=== PATIENT | male | born 1945 | race Caucasian/White ===

== ENCOUNTER 2017-09-22 22:24 | Inpatient (IN) | payer MEDICARE ==
[2017-09-22] MEDS ORDERED: SODIUM CHLORIDE 0.9% 500 ML IV STA (23:19)
[2017-09-22] MEDS ORDERED: MORPHINE SULFATE 4 MG/ML SYRINGE IV STA (23:19)
--- NOTE | 2017-09-22 23:25 | ED ---
General Adult HPI - General Chief complaint: Abdominal Pain Stated complaint: Groin Pain Time Seen by Provider: 09/22/17 23:02 Source: patient Mode of arrival: ambulatory Limitations: no limitations - History of Present Illness Initial comments: 72-year-old male presents the ED today with complaint of bulge in his left groin and pain. Patient reports that for the past 3 months he has noticed a bulge in his left groin that he is able to push back in, he states that this evening the bulge came out and became painful he was unable to push it back in. He has not been evaluated by a physician for this prior to [facility]. Patient reports that he was in his usual state of health throughout the day today. He had a normal bowel movement this morning. He was able to work out and play a round of golf throughout the day without any discomfort. This evening he noticed a bulge in his left groin which she has noticed multiple times before. He attempted to reduce this without success and then developed some significant pain in this area. He also notes that he can hear to going in the bulge. Patient denies any fevers, chills, nausea, vomiting, diarrhea, change in bowel or bladder habits. His last meal was around 2 PM today. He has no known history of inguinal hernia, he does have a history of prostate cancer and prostate surgeries. - Related Data Allergies Allergy/AdvReac Type Severity Reaction Status Date / Time No Known Allergies Allergy Verified 09/22/17 22:40 Review of Systems ROS Statement: Those systems with pertinent positive or pertinent negative responses have been documented in the HPI. ROS Other: All systems not noted in ROS Statement are negative. Past Medical History Past Medical History: No Reported History History of Any Multi-Drug Resistant Organisms: None Reported Past Surgical History: Bowel Resection, Prostate Surgery Past Psychological History: No Psychological Hx Reported Smoking Status: Never smoker Past Alcohol Use History: Rare Past Drug Use History: None Reported General Exam Limitations: no limitations General appearance: alert, other (Appears uncomfortable) Head exam: Present: atraumatic, normocephalic Eye exam: Present: normal appearance, PERRL ENT exam: Present: normal exam Neck exam: Present: normal inspection Respiratory exam: Present: normal lung sounds bilaterally. Absent: respiratory distress Cardiovascular Exam: Present: regular rate, normal rhythm GI/Abdominal exam: Present: soft, hernia Rectal exam: Present: deferred exam: Absent: testicular tenderness, scrotal swelling Extremities exam: Present: normal inspection Back exam: Present: normal inspection Neurological exam: Present: alert, oriented X3 Psychiatric exam: Present: normal affect, normal mood Skin exam: Present: warm, dry, intact Course Vital Signs 09/22/17 09/23/17 09/23/17 22:37 01:33 01:35 Temperature 97.4 F L 98.6 F Pulse Rate 76 77 Respiratory 20 16 Rate Blood Pressure 147/82 157/81 O2 Sat by Pulse 97 97 Oximetry Medical Decision Making - Medical Decision Making Patient seen and evaluated, history and physical exam are consistent with an incarcerated inguinal hernia I was unsuccessful in reducing the hernia Labs, imaging were ordered An ice pack was applied to the groin, morphine was ordered - I will reattempt reduction after analgesia Patient was given morphine and reported some improvement in his discomfort, the patient was then placed in Trendelenburg position and direct pressure was applied to the hernia. I was not successful in reducing the hernia attempts to reduce cause significant pain. Labs resulted, no elevation of the lactic acid, no leukocytosis Computed tomography scan confirms the suspected left inguinal hernia with incarceration there is noted to be descending colon in the hernia Patient was updated with the CT findings and plan for admission Patient care was discussed with Dr. Mascorro general surgery team who agrees with plan for admission, nothing by mouth status, pain management. He will evaluate the patient in the morning with plan for surgery. - Lab Data Result diagrams: 09/22/17 23:55 09/22/17 23:55 Lab Results 09/22/17 09/22/17 09/22/17 Range/Units 23:55 23:55 23:55 WBC 8.6 (3.8-10.6) k/uL RBC 4.51 (4.30-5.90) m/uL Hgb 14.5 (13.0-17.5) gm/dL Hct 42.4 (39.0-53.0) % MCV 94.1 (80.0-100.0) fL MCH 32.3 (25.0-35.0) pg MCHC 34.3 (31.0-37.0) g/dL RDW 13.0 (11.5-15.5) % Plt Count 173 (150-450) k/uL Neutrophils % 68 % Lymphocytes % 20 % Monocytes % 6 % Eosinophils % 4 % Basophils % 0 % Neutrophils # 5.8 (1.3-7.7) k/uL Lymphocytes # 1.7 (1.0-4.8) k/uL Monocytes # 0.5 (0-1.0) k/uL Eosinophils # 0.4 (0-0.7) k/uL Basophils # 0.0 (0-0.2) k/uL PT (9.0-12.0) sec INR (<1.2) APTT (22.0-30.0) sec Sodium 142 (137-145) mmol/L Potassium 4.3 (3.5-5.1) mmol/L Chloride 108 H (98-107) mmol/L Carbon Dioxide 27 (22-30) mmol/L Anion Gap 7 mmol/L BUN 23 H (9-20) mg/dL Creatinine 0.90 (0.66-1.25) mg/dL Est GFR (CKD-EPI)AfAm >90 (>60 ml/min/1.73 sqM) Est GFR (CKD-EPI)NonAf 84 (>60 ml/min/1.73 sqM) Glucose 132 H (74-99) mg/dL Plasma Lactic Acid Ilya 1.3 (0.7-2.0) mmol/L Calcium 9.3 (8.4-10.2) mg/dL Total Bilirubin 0.6 (0.2-1.3) mg/dL AST 26 (17-59) U/L ALT 30 (21-72) U/L Alkaline Phosphatase 73 (38-126) U/L Total Protein 6.4 (6.3-8.2) g/dL Albumin 4.1 (3.5-5.0) g/dL Urine Color Urine Appearance (Clear) Urine pH (5.0-8.0) Ur Specific [place] (1.001-1.035) Urine Protein (Negative) Urine Glucose (UA) (Negative) Urine Ketones (Negative) Urine Blood (Negative) Urine Nitrite (Negative) Urine Bilirubin (Negative) Urine Urobilinogen (<2.0) mg/dL Ur Leukocyte Esterase (Negative) Urine RBC (0-5) /hpf Urine WBC (0-5) /hpf Urine Bacteria (None) /hpf Urine Mucus (None) /hpf Blood Type Blood Type Recheck Antibody Screen Spec Expiration Date 09/22/17 09/22/17 09/23/17 Range/Units 23:55 23:55 00:05 WBC (3.8-10.6) k/uL RBC (4.30-5.90) m/uL Hgb (13.0-17.5) gm/dL Hct (39.0-53.0) % MCV (80.0-100.0) fL MCH (25.0-35.0) pg MCHC (31.0-37.0) g/dL RDW (11.5-15.5) % Plt Count (150-450) k/uL Neutrophils % % Lymphocytes % % Monocytes % % Eosinophils % % Basophils % % Neutrophils # (1.3-7.7) k/uL Lymphocytes # (1.0-4.8) k/uL Monocytes # (0-1.0) k/uL Eosinophils # (0-0.7) k/uL Basophils # (0-0.2) k/uL PT 10.1 (9.0-12.0) sec INR 1.0 (<1.2) APTT 23.1 (22.0-30.0) sec Sodium (137-145) mmol/L Potassium (3.5-5.1) mmol/L Chloride (98-107) mmol/L Carbon Dioxide (22-30) mmol/L Anion Gap mmol/L BUN (9-20) mg/dL Creatinine (0.66-1.25) mg/dL Est GFR (CKD-EPI)AfAm (>60 ml/min/1.73 sqM) Est GFR (CKD-EPI)NonAf (>60 ml/min/1.73 sqM) Glucose (74-99) mg/dL Plasma Lactic Acid Ilya (0.7-2.0) mmol/L Calcium (8.4-10.2) mg/dL Total Bilirubin (0.2-1.3) mg/dL AST (17-59) U/L ALT (21-72) U/L Alkaline Phosphatase (38-126) U/L Total Protein (6.3-8.2) g/dL Albumin (3.5-5.0) g/dL Urine Color Yellow Urine Appearance Clear (Clear) Urine pH 5.5 (5.0-8.0) Ur Specific [place] 1.024 (1.001-1.035) Urine Protein Trace H (Negative) Urine Glucose (UA) Negative (Negative) Urine Ketones Negative (Negative) Urine Blood Trace H (Negative) Urine Nitrite Negative (Negative) Urine Bilirubin Negative (Negative) Urine Urobilinogen 2.0 (<2.0) mg/dL Ur Leukocyte Esterase Negative (Negative) Urine RBC 3 (0-5) /hpf Urine WBC <1 (0-5) /hpf Urine Bacteria Rare H (None) /hpf Urine Mucus Rare H (None) /hpf Blood Type A Positive Blood Type Recheck CABO Indicated Antibody Screen NEGATIVE Spec Expiration Date 09/25/2017 - 1590 Disposition Clinical Impression: Incarcerated left inguinal hernia Disposition: ADMITTED IP TO THIS [facility] Condition: Good Decision Time: 01:09
[2017-09-23 00:06] LABS: Basophils % (A) 0 %; Eosinophils # (A) 0.4 k/uL (0-0.7); Eosinophils % (A) 4 %; HCT 42.4 % (39.0-53.0); HGB 14.5 gm/dL (13.0-17.5); Lymphocytes # (A) 1.7 k/uL (1.0-4.8); Lymphocytes % (A) 20 %; MCH 32.3 pg (25.0-35.0); MCHC 34.3 g/dL (31.0-37.0); MCV 94.1 fL (80.0-100.0); Mean Platelet Volume 7.8; Monocytes # (A) 0.5 k/uL (0-1.0); Monocytes % (A) 6 %; Neutrophils # (A) 5.8 k/uL (1.3-7.7); Neutrophils % (A) 68 %; Platelet Count 173 k/uL (150-450); RBC 4.51 m/uL (4.30-5.90); WBC 8.6 k/uL (3.8-10.6)
[2017-09-23 00:17] LABS: Partial Thromboplastin Time 23.1 sec (22.0-30.0); Prothrombin Time 10.1 sec (9.0-12.0)
[2017-09-23 00:18] LABS: Appearance,Urine Clear (Clear); Bacteria,Urine Rare /hpf; Bilirubin,Urine Negative (Negative); Blood,Urine Trace (Negative); Color,Urine Yellow; Glucose,Urine (UA) Negative (Negative); Ketones,Urine Negative (Negative); Leukocyte Esterase,Urine Negative (Negative); Mucus,Urine Rare /hpf; Nitrite,Urine Negative (Negative); PH, Urine 5.5 (5.0-8.0); Protein,Urine Trace (Negative); RBC,Urine 3 /hpf (0-5); Specific Gravity,Urine 1.024 (1.001-1.035); WBC,Urine <1 /hpf (0-5)
[2017-09-23 00:18] LABS: ALT 30 U/L (21-72); AST 26 U/L (17-59); Albumin 4.1 g/dL (3.5-5.0); Alkaline Phosphatase 73 U/L (38-126); Anion Gap 7 mmol/L; Blood Urea Nitrogen 23 mg/dL (9-20); Calcium 9.3 mg/dL (8.4-10.2); Carbon Dioxide 27 mmol/L (22-30); Chloride 108 mmol/L (98-107); Glucose 132 mg/dL (74-99); Potassium 4.3 mmol/L (3.5-5.1); Sodium 142 mmol/L (137-145); Total Bilirubin 0.6 mg/dL (0.2-1.3); Total Protein 6.4 g/dL (6.3-8.2)
--- NOTE | 2017-09-23 00:57 | CT ---
EXAMINATION TYPE: CT abdomen pelvis w con DATE OF EXAM: 09/23/2017 COMPARISON: None HISTORY: left groin pain/R/O hernia CT DLP: 2221.40 mGycm Automated exposure control for dose reduction was used. TECHNIQUE: Helical acquisition of images was performed from the lung bases through the pelvis. CONTRAST: Performed without Oral Contrast and with IV Contrast, patient injected with 100 mL of Isovue 300. FINDINGS: The lung bases are clear. There is no pleural effusion. Heart size is normal. There is no pericardial effusion. Liver spleen pancreas gallbladder appear normal. Bile ducts are not dilated. There is no adrenal mass. Kidneys show satisfactory contrast opacification. There is no hydronephrosi s. There is no retroperitoneal adenopathy. There are probably small renal parapelvic cysts. I see no intestinal wall thickening. There are no dilated loops. Bladder distends smoothly. There are sigmoid diverticula. There is left-sided inguinal hernia that contains descending colon. There is no sign of a bowel obstruction. There is no ascites. The appendix appears normal. There is no evidence of a pelvic mass. Abdominal aorta is atheromatous. There are spondylotic changes in the thoracic and lumbar spine. I see no bony destructive process. IMPRESSION: THERE IS INCARCERATED LEFT INGUINAL HERNIA THAT CONTAINS DESCENDING COLON. NO BOWEL OBSTRUCTION SEEN. SIGMOID DIVERTICULOSIS WITHOUT DIVERTICULITIS. NORMAL APPENDIX.
[2017-09-23] MEDS ORDERED: NALOXONE 0.4 MG/ML 1 ML VIAL IV PRN (01:07)
[2017-09-23] MEDS: SODIUM CHLORIDE 0.9% 1,000 ML IV SCH ×3 (01:36→18:14)
[2017-09-23] MEDS: HYDROmorphone 1 MG/ML 1 ML SYRINGE IVP PRN ×7 (02:12→21:17)
--- NOTE | 2017-09-23 09:02 | P.GSHP ---
History of Present Illness H&P Date: 09/23/17 Chief Complaint: Left inguinal hernia This is a 72 male who has a history of intermittent left inguinal hernia. Patient INCREASED pain. He presents emergently last night. Patient's found have a left inguinal hernia containing large bowel. Patient does not have any evidence of bowel obstruction. Past Medical History Past Medical History: No Reported History History of Any Multi-Drug Resistant Organisms: None Reported Past Surgical History: Bowel Resection, Prostate Surgery Past Anesthesia/Blood Transfusion Reactions: No Reported Reaction Past Psychological History: No Psychological Hx Reported Smoking Status: Never smoker Past Alcohol Use History: Rare Past Drug Use History: None Reported Medications and Allergies Allergies Allergy/AdvReac Type Severity Reaction Status Date / Time No Known Allergies Allergy Verified 09/22/17 22:40 Surgical - Exam Vital Signs Temp Pulse Resp BP Pulse Ox 97.4 F L 76 20 147/82 97 09/22/17 22:37 09/22/17 22:37 09/22/17 22:37 09/22/17 22:37 09/22/17 22:37 - General well developed, no distress - Eyes PERRL - ENT normal pinna - Neck no masses - Respiratory normal expansion - Cardiovascular Rhythm: regular - Abdomen Abdomen: soft, non tender Hernia: inguinal (Incarcerated left inguinal hernia) Results - Labs 09/22/17 23:55 09/22/17 23:55 Abnormal Lab Results - Last 24 Hours (Table) 09/22/17 09/23/17 Range/Units 23:55 00:05 Chloride 108 H (98-107) mmol/L BUN 23 H (9-20) mg/dL Glucose 132 H (74-99) mg/dL Urine Protein Trace H (Negative) Urine Blood Trace H (Negative) Urine Bacteria Rare H (None) /hpf Urine Mucus Rare H (None) /hpf Diabetes panel 09/22/17 Range/Units 23:55 Sodium 142 (137-145) mmol/L Potassium 4.3 (3.5-5.1) mmol/L Chloride 108 H (98-107) mmol/L Carbon Dioxide 27 (22-30) mmol/L BUN 23 H (9-20) mg/dL Creatinine 0.90 (0.66-1.25) mg/dL Glucose 132 H (74-99) mg/dL Calcium 9.3 (8.4-10.2) mg/dL AST 26 (17-59) U/L ALT 30 (21-72) U/L Alkaline Phosphatase 73 (38-126) U/L Total Protein 6.4 (6.3-8.2) g/dL Albumin 4.1 (3.5-5.0) g/dL Calcium panel 09/22/17 Range/Units 23:55 Calcium 9.3 (8.4-10.2) mg/dL Albumin 4.1 (3.5-5.0) g/dL Pituitary panel 09/22/17 Range/Units 23:55 Sodium 142 (137-145) mmol/L Potassium 4.3 (3.5-5.1) mmol/L Chloride 108 H (98-107) mmol/L Carbon Dioxide 27 (22-30) mmol/L BUN 23 H (9-20) mg/dL Creatinine 0.90 (0.66-1.25) mg/dL Glucose 132 H (74-99) mg/dL Calcium 9.3 (8.4-10.2) mg/dL Adrenal panel 09/22/17 Range/Units 23:55 Sodium 142 (137-145) mmol/L Potassium 4.3 (3.5-5.1) mmol/L Chloride 108 H (98-107) mmol/L Carbon Dioxide 27 (22-30) mmol/L BUN 23 H (9-20) mg/dL Creatinine 0.90 (0.66-1.25) mg/dL Glucose 132 H (74-99) mg/dL Calcium 9.3 (8.4-10.2) mg/dL Total Bilirubin 0.6 (0.2-1.3) mg/dL AST 26 (17-59) U/L ALT 30 (21-72) U/L Alkaline Phosphatase 73 (38-126) U/L Total Protein 6.4 (6.3-8.2) g/dL Albumin 4.1 (3.5-5.0) g/dL Assessment and Plan Assessment: Left inguinal hernia. Patient will undergo open repair in the a.m.
[2017-09-24] MEDS: HYDROmorphone 1 MG/ML 1 ML SYRINGE IVP PRN ×2 (00:31→04:52)
[2017-09-24] MEDS: SODIUM CHLORIDE 0.9% 1,000 ML IV SCH ×3 (02:33→10:22)
[2017-09-24 07:44] LABS: Basophils % (A) 0 %; Eosinophils # (A) 0.4 k/uL (0-0.7); Eosinophils % (A) 6 %; HCT 38.7 % (39.0-53.0); HGB 13.1 gm/dL (13.0-17.5); Lymphocytes # (A) 1.2 k/uL (1.0-4.8); Lymphocytes % (A) 18 %; MCH 32.5 pg (25.0-35.0); MCV 95.7 fL (80.0-100.0); Mean Platelet Volume 7.7; Monocytes # (A) 0.4 k/uL (0-1.0); Monocytes % (A) 5 %; Neutrophils # (A) 4.6 k/uL (1.3-7.7); Neutrophils % (A) 70 %; Platelet Count 151 k/uL (150-450); RBC 4.04 m/uL (4.30-5.90); RDW 12.9 % (11.5-15.5); WBC 6.6 k/uL (3.8-10.6)
[2017-09-24 07:53] LABS: Anion Gap 5 mmol/L; Blood Urea Nitrogen 14 mg/dL (9-20); Calcium 8.8 mg/dL (8.4-10.2); Carbon Dioxide 28 mmol/L (22-30); Chloride 105 mmol/L (98-107); Glucose 112 mg/dL (74-99); Potassium 4.6 mmol/L (3.5-5.1); Sodium 138 mmol/L (137-145)
[2017-09-24] MEDS ORDERED: NALOXONE 0.4 MG/ML 1 ML VIAL ONE (08:17)
[2017-09-24] MEDS ORDERED: MIDAZOLAM 2 MG/2 ML VIAL ONE (08:17)
[2017-09-24] MEDS ORDERED: SUCCINYLCHOLINE CHLORIDE 100 MG/5 ML SYR IV ONE (08:17)
[2017-09-24] MEDS ORDERED: fentaNYL (PF) 50 MCG/ML 2 ML AMP ONE (08:17)
[2017-09-24] MEDS ORDERED: PROPOFOL 10 MG/ML 20 ML VIAL IV ONE (08:17)
[2017-09-24] MEDS ORDERED: SODIUM CHLORIDE 0.9% 100 ML with ceFAZolin 2,000 MG IV ONE ×2 (08:17)
[2017-09-24] MEDS ORDERED: HEPARIN SODIUM,PORCINE 5,000 UNIT/ML 1 ML VIAL ONE (08:17)
[2017-09-24] MEDS ORDERED: LIDOCAINE 1% INJ 10MG/ML (20 ML MDV) ONE (08:17)
[2017-09-24] MEDS ORDERED: IV FLUID CONTINUATION 100 ML IV ONE (08:17)
[2017-09-24] MEDS ORDERED: ROPIVACAINE 5 MG/ML 30 ML VIAL MISCELLANE ONE (08:41)
[2017-09-24] MEDS ORDERED: LACTATED RINGERS 1,000 ML IV ONE ×2 (08:43→09:18)
[2017-09-24] MEDS ORDERED: NALOXONE 0.4 MG/ML 1 ML VIAL IV PRN (09:18)
[2017-09-24] MEDS ORDERED: HYDROmorphone 1 MG/ML 1 ML SYRINGE IVP PRN (09:18)
[2017-09-24] MEDS ORDERED: ONDANSETRON 4 MG/2 ML VIAL IVP PRN (09:18)
[2017-09-24] MEDS ORDERED: METOCLOPRAMIDE 5 MG/ML 2 ML VIAL IVP PRN (09:18)
[2017-09-24] MEDS ORDERED: KETOROLAC 30 MG/ML 1 ML VIAL IVP ONE (09:41)
[2017-09-24] MEDS: KETOROLAC 30 MG/ML 1 ML VIAL IVP SCH ×3 (09:47→21:15)
--- NOTE | 2017-09-24 10:23 | P.OP ---
Date of Procedure: 09/24/17 Preoperative Diagnosis: Incarcerated left inguinal hernia Postoperative Diagnosis: Incarcerated left inguinal hernia Procedure(s) Performed: Open repair of left inguinal hernia Anesthesia: LILLIE Surgeon: Pj Campos Estimated Blood Loss (ml): 5 Pathology: none sent Condition: stable Disposition: PACU Description of Procedure: MDESCRIPTION OF PROCEDURE: The patient was placed in the supine position after receiving adequate anesthesia. Patients groin was prepped and draped in the usual sterile fashion. A standard hernia incision was made and the subcutaneous tissues were divided with electrocautery. The fascia of the external oblique was exposed. A katie the fascia was made with #15 blade. The fascia was then opened with pair of Metzenbaum scissors. A Weitlaner retractor was placed in the wound and the cord structures were grasped and dissected free from the inguinal canal. A rubber Rosemary drain was placed around the cord structures. The hernial sac was seen on the anterior-medial portion of the cord and this was dissected free from the cord. The hernia sac was then invaginated to the peritoneal cavity. Using blunt finger dissection, the preperitoneal space was dissected and then the Prolene hernial mesh plug was placed into the prepared space. The inferior leaf was expanded. The superior leaf was secured to the pubic tubercle using 2-0 Prolene suture. The lateral portion of the superior leaf was incised and cords tied and secured to the transversalis fascia using 2-0 Prolene suture. Fascia of the external oblique was then closed using #0 Vicryl suture. The [place] drain was removed. The Scarpas fascia was then closed with 3-0 Vicryl suture and skin was closed with silvestre. The patient tolerated the procedure well.
--- NOTE | 2017-09-24 10:37 | P.CONS ---
History of Present Illness - Reason for Consult Consult date: 09/23/17 Medical management Requesting physician: Pj Campos - Chief Complaint Abdominal and groin pain - History of Present Illness 72-year-old male presents the ED today with complaint of bulge in his left groin and pain. Patient reports that for the past 3 months he has noticed a bulge in his left groin that he is able to push back in, he states that this evening the bulge came out and became painful he was unable to push it back in. He has not been evaluated by a physician for this prior to [facility]. Patient reports that he was in his usual state of health throughout the day today. He had a normal bowel movement this morning. He was able to work out and play a round of golf throughout the day without any discomfort. This evening he noticed a bulge in his left groin which she has noticed multiple times before. He attempted to reduce this without success and then developed some significant pain in this area. He also notes that he can hear to going in the bulge. Patient denies any fevers, chills, nausea, vomiting, diarrhea, change in bowel or bladder habits. His last meal was around 2 PM today. He has no known history of inguinal hernia, he does have a history of prostate cancer and prostate surgeries. Review of Systems Constitutional: Denies chills, Denies fever Eyes: denies blurred vision Ears: deny: ear discharge, earache Ears, nose, mouth and throat: Denies dysphagia, Denies epistaxis Cardiovascular: Denies chest pain, Denies irregular heart beat, Denies rapid heart beat Respiratory: Denies congestion, Denies dyspnea, Denies wheezing Gastrointestinal: Reports abdominal pain, Reports constipation, Denies change in bowel habits, Denies diarrhea, Denies nausea, Denies vomiting Genitourinary: Denies dysuria, Denies hematuria Musculoskeletal: Denies frequent falls, Denies low back pain, Denies morning stiffness Integumentary: Denies change in hair/nails, Denies color changes, Denies depigmentation Neurological: Denies balance difficulties, Denies confusion, Denies double vision Psychiatric: Denies anxiety, Denies confusion, Denies irritability Endocrine: Denies cold intolerance, Denies heat intolerance, Denies polydipsia, Denies polyuria Hematologic/Lymphatic: Denies easy bleeding, Denies easy bruising, Denies lymphadenopathy Allergic/Immunologic: Denies angioedema, Denies urticaria, Denies wheezing Past Medical History Past Medical History: No Reported History History of Any Multi-Drug Resistant Organisms: None Reported Past Surgical History: Bowel Resection, Prostate Surgery Past Anesthesia/Blood Transfusion Reactions: No Reported Reaction Past Psychological History: No Psychological Hx Reported Smoking Status: Never smoker Past Alcohol Use History: Rare Past Drug Use History: None Reported Medications and Allergies Home Medications Medication Instructions Recorded Confirmed Type Meloxicam 15 mg PO DAILY 09/23/17 09/23/17 History Multivitamins, Thera [Multivitamin 1 tab PO DAILY 09/23/17 09/23/17 History (formulary)] Docusate [Colace] 100 mg PO BID #20 capsule 09/24/17 Rx HYDROcodone/APAP 7.5-325MG [[place] 1 tab PO Q4H PRN 3 Days #18 tab 09/24/17 Rx 7.5-325] Allergies Allergy/AdvReac Type Severity Reaction Status Date / Time No Known Allergies Allergy Verified 09/23/17 13:28 Physical Exam Vitals: Vital Signs Temp Pulse Pulse Resp BP BP Pulse Ox 09/23/17 07:15 97.7 F 70 14 136/80 96 09/23/17 02:18 97.6 F 77 16 162/91 96 09/23/17 02:00 77 16 09/23/17 01:53 16 09/23/17 01:35 98.6 F 09/23/17 01:33 77 16 157/81 97 09/22/17 22:37 97.4 F L 76 20 147/82 97 Intake and Output 09/22/17 09/23/17 09/23/17 22:59 06:59 14:59 Intake Total 1000 Balance 1000 Intake: Intake, IV Titration 1000 Amount Sodium Chloride 0.9% 1, 1000 000 ml @ 125 mls/hr IV . Q8H [facility] Rx#:[id number] Other: # Voids 2 Weight 99.79 kg - Constitutional General appearance: Present: average body habitus, cooperative, no acute distress - EENT Eyes: Present: anicteric sclerae, EOMI, PERRLA, normal appearance ENT: Present: hearing grossly normal, normal oropharynx Ears: bilateral: normal - Neck Neck: Present: normal ROM. Absent: lymphadenopathy, rigidity, thyromegaly Carotids: negative: bruit present Thyroid: bilateral: normal size, negative: enlarged, nodule - Respiratory Respiratory: bilateral: CTA, negative: rales, rhonchi, wheezing - Cardiovascular Rhythm: regular Heart sounds: normal: S1, S2 Abnormal Heart Sounds: Absent: systolic murmur, diastolic murmur - Gastrointestinal General gastrointestinal: Present: normal bowel sounds, soft. Absent: distended , organomegaly; tenderness left inguinal region - Genitourinary Genitourinary Comment(s): deferred - Integumentary Integumentary: Present: normal turgor. Absent: jaundiced, rash, ulcer - Neurologic Neurologic: Present: CNII-XII intact. Absent: focal deficits - Musculoskeletal Musculoskeletal: Present: gait normal, strength equal bilaterally - Psychiatric Psychiatric: Present: A&O x's 3, appropriate affect, intact judgment & insight Results CBC & Chem 7: 09/24/17 07:02 09/24/17 07:02 Labs: Abnormal Lab Results - Last 24 Hours (Table) 09/22/17 09/23/17 Range/Units 23:55 00:05 Chloride 108 H (98-107) mmol/L BUN 23 H (9-20) mg/dL Glucose 132 H (74-99) mg/dL Urine Protein Trace H (Negative) Urine Blood Trace H (Negative) Urine Bacteria Rare H (None) /hpf Urine Mucus Rare H (None) /hpf Assessment and Plan Assessment: 1. Incarcerated left inguinal hernia 2. Mild AK I 3. Hyperglycemia 4. Obesity 5. DJD 6. Constipation 7. DVT prophylaxis; per surgical team - We will monitor the patient with you for pain management; we recommend incentive spirometry post surgery Q one hour while awake; we will monitor CBC and hemoglobin for post surgical anemia; we do recommend early ambulation and DVT prophylaxis per surgery recommendations; patient remains nothing by mouth for surgery; we will recommend low-cholesterol diet once oral intake is established; patient's blood glucose was 132 upon admission and has improved since then; we will continue to monitor Accu-Cheks every before meals and at bedtime as needed. Patient remains on slow IV fluid hydration; we will monitor renal function, electrolytes and strict ROSAURA's; we will avoid nephrotoxins and hypotension. CODE STATUS; full code Time with Patient: Greater than 30
[2017-09-24] MEDS: HYDROcodone/APAP 5-325MG 1 EACH TAB PO PRN ×2 (13:04→18:24)
--- NOTE | 2017-09-24 13:39 | P.PN ---
Subjective Progress Note Date: 09/24/17 Principal diagnosis: Incarcerated left inguinal hernia Status post open inguinal hernia repair 72-year-old male presents the ED today with complaint of bulge in his left groin and pain. Patient reports that for the past 3 months he has noticed a bulge in his left groin that he is able to push back in, he states that this evening the bulge came out and became painful he was unable to push it back in. He has not been evaluated by a physician for this prior to [facility]. Patient reports that he was in his usual state of health throughout the day today. He had a normal bowel movement this morning. He was able to work out and play a round of golf throughout the day without any discomfort. This evening he noticed a bulge in his left groin which she has noticed multiple times before. He attempted to reduce this without success and then developed some significant pain in this area. He also notes that he can hear to going in the bulge. 09/24/2017 Patient is seen and evaluated in the room at bedside; patient is status post open repair of left inguinal hernia Patient denies any chest pain or shortness of breath; denies any pain at the surgical site; patient labs remained stable with a hemoglobin of 13.1; blood glucose remained stable at 112; patient has been started on a clear liquid diet with a plan to advance as tolerated. Objective - Vital Signs Vital signs: Vital Signs Temp 96.9 F L 09/24/17 09:30 Pulse 77 09/24/17 10:00 Resp 18 09/24/17 10:00 BP 175/95 09/24/17 10:00 Pulse Ox 99 09/24/17 10:00 Intake & Output 09/23/17 09/24/17 09/24/17 18:59 06:59 18:59 Intake Total 875 1500 900 Output Total 150 900 310 Balance 725 600 590 Intake: IV 900 Intake, IV Titration 875 1500 Amount Sodium Chloride 0.9% 1, 875 1500 000 ml @ 125 mls/hr IV . Q8H [facility] Rx#:[id number] Output: Urine 150 900 300 Estimated Blood Loss 10 Other: Voiding Method Urinal Toilet Urinal Urinal # Voids 1 - Exam - Constitutional General appearance: Present: average body habitus, cooperative, no acute distress - EENT Eyes: Present: anicteric sclerae, EOMI, PERRLA, normal appearance ENT: Present: hearing grossly normal, normal oropharynx Ears: bilateral: normal - Neck Neck: Present: normal ROM. Absent: lymphadenopathy, rigidity, thyromegaly Carotids: negative: bruit present Thyroid: bilateral: normal size, negative: enlarged, nodule - Respiratory Respiratory: bilateral: CTA, negative: rales, rhonchi, wheezing - Cardiovascular Rhythm: regular Heart sounds: normal: S1, S2 Abnormal Heart Sounds: Absent: systolic murmur, diastolic murmur - Gastrointestinal General gastrointestinal: Present: normal bowel sounds, soft. Absent: distended , organomegaly, tenderness - Genitourinary Genitourinary Comment(s): deferred - Integumentary Integumentary: Present: normal turgor. Absent: jaundiced, rash, ulcer - Neurologic Neurologic: Present: CNII-XII intact. Absent: focal deficits - Musculoskeletal Musculoskeletal: Present: gait normal, strength equal bilaterally - Psychiatric Psychiatric: Present: A&O x's 3, appropriate affect, intact judgment & insight - Labs CBC & Chem 7: 09/24/17 07:02 09/24/17 07:02 Labs: Abnormal Lab Results - Last 24 Hours (Table) 09/24/17 09/24/17 Range/Units 07:02 07:02 RBC 4.04 L (4.30-5.90) m/uL Hct 38.7 L (39.0-53.0) % Glucose 112 H (74-99) mg/dL Assessment and Plan Assessment: 1. Incarcerated left inguinal hernia 2. Mild AK I 3. Hyperglycemia 4. Obesity 5. DJD 6. Constipation 7. DVT prophylaxis; per surgical team - We will monitor the patient with you for pain management; we recommend incentive spirometry post surgery Q one hour while awake; we will monitor CBC and hemoglobin for post surgical anemia; we do recommend early ambulation and DVT prophylaxis per surgery recommendations; patient remains nothing by mouth for surgery; we will recommend low-cholesterol diet once oral intake is established; patient's blood glucose was 132 upon admission and has improved since then; we will continue to monitor Accu-Cheks every before meals and at bedtime as needed. Patient remains on slow IV fluid hydration; we will monitor renal function, electrolytes and strict ROSAURA's; we will avoid nephrotoxins and hypotension. CODE STATUS; full code Time with Patient: Greater than 30
[2017-09-24] MEDS: DOCUSATE 100 MG CAP PO SCH (21:16)
[2017-09-25] MEDS: SODIUM CHLORIDE 0.9% 1,000 ML IV SCH ×2 (01:06→08:00)
[2017-09-25] MEDS: HYDROcodone/APAP 5-325MG 1 EACH TAB PO PRN ×3 (01:06→13:54)
[2017-09-25] MEDS: KETOROLAC 30 MG/ML 1 ML VIAL IVP SCH ×3 (03:17→09:25)
[2017-09-25 07:44] LABS: Basophils % (A) 0 %; Eosinophils # (A) 0.3 k/uL (0-0.7); Eosinophils % (A) 3 %; HCT 40.9 % (39.0-53.0); HGB 13.6 gm/dL (13.0-17.5); Lymphocytes # (A) 1.6 k/uL (1.0-4.8); Lymphocytes % (A) 16 %; MCH 32.1 pg (25.0-35.0); MCHC 33.4 g/dL (31.0-37.0); MCV 96.4 fL (80.0-100.0); Mean Platelet Volume 7.3; Monocytes # (A) 0.6 k/uL (0-1.0); Monocytes % (A) 6 %; Neutrophils # (A) 7.5 k/uL (1.3-7.7); Neutrophils % (A) 74 %; Platelet Count 158 k/uL (150-450); RBC 4.24 m/uL (4.30-5.90); RDW 13.2 % (11.5-15.5); WBC 10.1 k/uL (3.8-10.6)
[2017-09-25 07:48] VITALS: BP 145/83; PULSE 85; RESP 16; TEMP 98.8
[2017-09-25 08:00] LABS: Anion Gap 5 mmol/L; Blood Urea Nitrogen 14 mg/dL (9-20); Calcium 8.9 mg/dL (8.4-10.2); Carbon Dioxide 31 mmol/L (22-30); Chloride 103 mmol/L (98-107); Glucose 114 mg/dL (74-99); Potassium 4.3 mmol/L (3.5-5.1); Sodium 139 mmol/L (137-145)
[2017-09-25] MEDS: DOCUSATE 100 MG CAP PO SCH (08:10)
[2017-09-25] MEDS ORDERED: ENOXAPARIN 40 MG/0.4 ML SYRINGE SQ SCH (09:00)
--- NOTE | 2017-09-25 16:07 | P.DS ---
Providers Date of admission: 09/24/17 13:01 Expected date of discharge: 09/25/17 Attending physician: Pj Campos Consults: 09/23/17 09:02 Consult Physician Routine Consulting Provider: Miguel Angel Peck Consult Reason/Comments: Medical management Do you want consulting provider notified?: Yes Primary care physician: Familia Montes [place] [facility] Course: This a 72-year-old male who was admitted to the hospital with incarcerated left inguinal hernia. Underwent open repair of left inguinal hernia. Please see hospital chart for details. Patient Condition at Discharge: Good Plan - Discharge Summary Discharge Rx Participant: No New Discharge Prescriptions: New Docusate [Colace] 100 mg PO BID #20 capsule HYDROcodone/APAP 7.5-325MG [[place] 7.5-325] 1 tab PO Q4H PRN 3 Days #18 tab PRN Reason: Pain No Action Multivitamins, Thera [Multivitamin (formulary)] 1 tab PO DAILY Meloxicam 15 mg PO DAILY Discharge Medication List Meloxicam 15 mg PO DAILY 09/23/17 [History] Multivitamins, Thera [Multivitamin (formulary)] 1 tab PO DAILY 09/23/17 [History ] Docusate [Colace] 100 mg PO BID #20 capsule 09/24/17 [Rx] HYDROcodone/APAP 7.5-325MG [[place] 7.5-325] 1 tab PO Q4H PRN 3 Days #18 tab 09/24 [Rx] Follow up Appointment(s)/Referral(s): Familia Montes MD [Primary Care Provider] - 09/26/17 9:00 am Pj Campos MD [STAFF PHYSICIAN] - 10/03/17 3:15 pm Patient Instructions/Handouts: Inguinal Hernia Repair (DC) Discharge Disposition: HOME SELF-CARE
--- NOTE | 2017-09-26 00:56 | P.PN ---
Subjective Progress Note Date: 09/25/17 Principal diagnosis: Inguinal left incarcerated hernia 72-year-old male presents the ED today with complaint of bulge in his left groin and pain. Patient reports that for the past 3 months he has noticed a bulge in his left groin that he is able to push back in, he states that this evening the bulge came out and became painful he was unable to push it back in. He has not been evaluated by a physician for this prior to tonight. Patient reports that he was in his usual state of health throughout the day today. He had a normal bowel movement this morning. He was able to work out and play a round of golf throughout the day without any discomfort. This evening he noticed a bulge in his left groin which she has noticed multiple times before. He attempted to reduce this without success and then developed some significant pain in this area. He also notes that he can hear to going in the bulge. 09/24/2017 Patient is seen and evaluated in the room at bedside; patient is status post open repair of left inguinal hernia Patient denies any chest pain or shortness of breath; denies any pain at the surgical site; patient labs remained stable with a hemoglobin of 13.1; blood glucose remained stable at 112; patient has been started on a clear liquid diet with a plan to advance as tolerated. 09/25/2017 Patient says that left inguinal pain is much improved. Tolerating oral diet. Patient did have bowel movement otherwise. Hemoglobin is stable. Stable to be discharged home. Current medications reviewed. Objective - Vital Signs Vital signs: Vital Signs Temp 98.8 F 09/25/17 07:20 Pulse 85 09/25/17 07:20 Resp 16 09/25/17 07:20 BP 145/83 09/25/17 07:20 Pulse Ox 97 09/25/17 07:20 Intake & Output 09/24/17 09/25/17 09/25/17 18:59 06:59 18:59 Intake Total 900 300 240 Output Total 310 700 Balance 590 -400 240 Intake: IV 900 Intake, IV Titration 300 Amount Lactated Ringers 1,000 ml 300 @ 75 mls/hr IV .[id number] ONE Rx#:[id number] Oral 240 Output: Urine 300 700 Estimated Blood Loss 10 Other: Voiding Method Urinal Toilet Toilet Urinal Urinal - Exam - Exam - Constitutional General appearance: Present: average body habitus, cooperative, no acute distress - EENT Eyes: Present: anicteric sclerae, EOMI, PERRLA, normal appearance ENT: Present: hearing grossly normal, normal oropharynx Ears: bilateral: normal - Neck Neck: Present: normal ROM. Absent: lymphadenopathy, rigidity, thyromegaly Carotids: negative: bruit present Thyroid: bilateral: normal size, negative: enlarged, nodule - Respiratory Respiratory: bilateral: CTA, negative: rales, rhonchi, wheezing - Cardiovascular Rhythm: regular Heart sounds: normal: S1, S2 Abnormal Heart Sounds: Absent: systolic murmur, diastolic murmur - Gastrointestinal General gastrointestinal: Present: normal bowel sounds, soft. Absent: distended , organomegaly, tenderness - Genitourinary Genitourinary Comment(s): deferred - Integumentary Integumentary: Present: normal turgor. Absent: jaundiced, rash, ulcer - Neurologic Neurologic: Present: CNII-XII intact. Absent: focal deficits - Musculoskeletal Musculoskeletal: Present: gait normal, strength equal bilaterally - Psychiatric Psychiatric: Present: A&O x's 3, appropriate affect, intact judgment & insight - Labs CBC & Chem 7: 09/25/17 06:30 09/25/17 06:30 Labs: Abnormal Lab Results - Last 24 Hours (Table) 09/25/17 09/25/17 Range/Units 06:30 06:30 RBC 4.24 L (4.30-5.90) m/uL Carbon Dioxide 31 H (22-30) mmol/L Glucose 114 H (74-99) mg/dL Assessment and Plan Assessment: 1. Incarcerated left inguinal hernia 2. Mild AK I 3. Hyperglycemia 4. Obesity 5. DJD 6. Constipation 7. DVT prophylaxis; per surgical team - We will monitor the patient with you for pain management; we recommend incentive spirometry post surgery Q one hour while awake; we will monitor CBC and hemoglobin for post surgical anemia; we do recommend early ambulation and DVT prophylaxis per surgery recommendations; will recommend low-cholesterol diet once oral intake is established; patient's blood glucose was 132 upon admission and has improved since then; we will continue to monitor Accu-Cheks every before meals and at bedtime as needed. we will monitor renal function, electrolytes and strict ROSAURA's; we will avoid nephrotoxins and hypotension.
== END 2017-09-25 14:20 | disposition home or self-care (01) | DRG 352 ==
LOC: EC 22:24 → 3SUR 09-23 01:09 → OBSVTOIN 09-24 13:01
PROVIDERS: ADMIT Surgery; ATTEND Surgery
PROC: 0YU60JZ Supplement Left Inguinal Region with Synthetic Substitute, Open Approach (ICD-10-PCS; principal; 2017-09-24 08:00)
DX: K40.30 Unilateral inguinal hernia, with obstruction, without gangrene, not specified as recurrent (principal); E66.9 Obesity, unspecified; Z68.31 Body mass index [BMI] 31.0-31.9, adult; K59.00 Constipation, unspecified; R73.9 Hyperglycemia, unspecified; M19.90 Unspecified osteoarthritis, unspecified site
CPT/HCPCS: 36415; 74177; 80048; 80053; 81001; 83605; 85025; 85610; 85730; 86850; 86900; 86901; 93005; 96374; 96375; 99285

== ENCOUNTER → 2019-09-12 | Outpatient (CLI) | payer MEDICARE ==
--- NOTE | 2019-09-12 15:02 | US ---
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 Intermittent left neck pain x 1 year EXAM MEASUREMENTS: RIGHT: Peak Systolic Velocity (PSV) cm/sec ----- Right CCA: 74.8 ----- Right ICA: 97.0 ----- Right ECA: 117.0 ICA/CCA ratio: 1.3 RIGHT: End Diastole cm/sec ----- Right CCA: 19.7 ----- Right ICA: 31.8 ----- Right ECA: 19.8 LEFT: Peak Systolic Velocity (PSV) cm/sec ----- Left CCA: 82.0 ----- Left ICA: 72.1 ----- Left ECA: 93.1 ICA/CCA ratio: 0.9 LEFT: End Diastole cm/sec ----- Left CCA: 21.3 ----- Left ICA: 23.0 ----- Left ECA: 18.5 VERTEBRALS (direction of flow): Right Vertebral: Antegrade Left Vertebral: Antegrade Rhythm: Normal Bilateral intimal thickening, no elevated velocities, no significant stenosis. Grayscale, color Doppl er, spectral Doppler imaging performed of the carotid arteries. Waveform analysis does not show signi ficant stenosis of the internal carotid arteries. IMPRESSION: No hemodynamic significant stenosis of the proximal internal carotid arteries by Doppler criteria, an indirect measurement of carotid stenosis Criteria for Assigning % of Stenosis / Diameter reduction (Estimation based on the indirect measurements of the internal carotid artery velocities (ICA PSV). 1. Normal (no stenosis)=ICA PSV < 125 cm/s: ratio < 2.0: ICA EDV<40 cm/s. 2. Less than 50% stenosis=ICA PSV < 125 cm/s: ratio < 2.0: ICA EDV<40 cm/s. 3. 50 to 69% stenosis=ICA PSV of 125 to 230 cm/s: ration 2.0 ? 4.0: ICA EDV 40-100 cm/s. 4. Greater than 70% stenosis to near occlusion= ICA PSV > 230 cm/s: ratio > 4.0: ICA EDV > 100 cm/s. 5. Near occlusion= ICA PSV velocities may be low or undetectable: variable ratio and ICA EDV. 6. Total occlusion=unable to detect flow.
== END | disposition home or self-care (01) ==
LOC: RADUSWWP 13:37
PROVIDERS: ATTEND Internal Medicine
DX: G45.0 Vertebro-basilar artery syndrome (principal)
CPT/HCPCS: 93880

== ENCOUNTER → 2021-11-01 | Outpatient (CLI) | payer MEDICARE ==
[2021-11-01 11:52] LABS: Basophils # (A) 0.03 X 10*3/uL (0.00-0.10); Basophils % (A) 0.5 %; Eosinophils # (A) 0.33 X 10*3/uL (0.04-0.35); Eosinophils % (A) 5.3 %; HGB 14.2 g/dL (13.0-17.0); Immature Grans, Automated 0.2 %; Lymphocytes # (A) 2.08 X 10*3/uL (0.90-5.00); Lymphocytes % (A) 33.3 %; MCH 32.1 pg (27.0-32.0); MCV 97.1 fL (80.0-97.0); Monocytes # (A) 0.61 X 10*3/uL (0.20-1.00); Monocytes % (A) 9.8 %; NRBC Per 100 WBC 0 /100 WBCS (0.0-0.0); Neutrophils # (A) 3.19 X 10*3/uL (1.80-7.70); Neutrophils % (A) 50.9 %; Platelet Count 168 X 10*3/uL (140-440); RBC 4.43 X 10*6/uL (4.40-5.60); RDW 12.9 % (11.5-14.5); WBC 6.25 X 10*3/uL (4.50-10.00)
[2021-11-01 12:28] LABS: African American GFR (CKD) 66.7 (60.0-200.0); Anion Gap 8.2 mmol/L (10.00-18.00); BUN/Creat Ratio 16.67 Ratio (12.00-20.00); Calcium 9.7 mg/dL (8.7-10.3); Carbon Dioxide 28.8 mmol/L (20.0-27.5); Non-African American GFR(CKD) 57.6 (60.0-200.0); Potassium 5.7 mmol/L (3.5-5.5)
== END | disposition home or self-care (01) ==
LOC: LABPAT 07:18
PROVIDERS: ATTEND Orthopaedic Surgery
DX: Z01.818 Encounter for other preprocedural examination (principal); I49.2 Junctional premature depolarization; M17.11 Unilateral primary osteoarthritis, right knee; R94.31 Abnormal electrocardiogram [ECG] [EKG]; Z22.322 Carrier or suspected carrier of Methicillin resistant Staphylococcus aureus
CPT/HCPCS: 80048; 85025; 87070; 93005

== ENCOUNTER 2021-11-16 05:32 | Day surgery (SDC) | payer MEDICARE ==
--- NOTE | 2021-11-15 09:41 | P.HPOR ---
History of Present Illness H&P Date: 11/15/21 Chief Complaint: Right knee pain The patient is a 76-year-old retired male who presents with progressive right knee pain for the past several years worsening recently. He notes daily pain worse with weightbearing activities. He has intermittent swelling, locking, and buckling. He tried medications in addition to previous injections. He has a history of an arthroscopy approximate 5 years ago. Review of Systems As per HPI Past Medical History Past Medical History: Hypertension Additional Past Medical History / Comment(s): rt knee bone on bone. hx of pin hole intestine requiring - repaired History of Any Multi-Drug Resistant Organisms: None Reported Past Surgical History: Bowel Resection, Hernia Repair, Prostate Surgery Additional Past Surgical History / Comment(s): rt and left rotator cuff repair. rt ankle surgery with screws. left inguinal hernia repair 2018, right knee arthroscopy Past Anesthesia/Blood Transfusion Reactions: No Reported Reaction Additional Past Anesthesia/Blood Transfusion Reaction / Comment(s): blood transfusions no problems Smoking Status: Never smoker - Past Family History Father History Unknown: Yes Family Medical History: Cancer Mother Family Medical History: Cancer, Diabetes Mellitus Medications and Allergies Home Medications Medication Instructions Recorded Confirmed Type Multivitamins, Thera [Multivitamin 1 tab PO DAILY 09/23/17 11/12/21 History (formulary)] Fluticasone Propionate 1 spray NASAL DAILY 11/12/21 11/12/21 History Unk Bone Up Supplement 1 tab PO DAILY 11/12/21 11/12/21 History Unk Garlic 1 tab PO DAILY 11/12/21 11/12/21 History Unk [place] 3 1 tab PO DAILY 11/12/21 11/12/21 History Unk Tumeric 1 tab PO DAILY 11/12/21 11/12/21 History lisinopriL [Zestril] 20 mg PO DAILY 11/12/21 11/12/21 History Allergies Allergy/AdvReac Type Severity Reaction Status Date / Time No Known Allergies Allergy Verified 11/12/21 08:16 Physical Examination - Knee right Appearance: effusion Effusion grade: grade 2 Varus alignment in stance: 10 degrees Tenderness with palpation: medial Pain: with flexion Gait: limping ROM: extension: -10 degrees ROM: flexion: 110 degrees Strength: extension: 5/5 Strength: flexion: 5/5 Results The patient is a well-developed well-nourished male of mesomorphic habitus. HEENT exam is nonfocal, neck is supple. He has painless passive motion of the right hip. Straight leg raise is negative. His distal neurovascular appears intact in the right lower extremity. - Diagnostic results Knee x-ray: image reviewed (3 views of the right knee obtained in the office show severe medial compartment osteoarthrosis with [id number] changes and subchondral sclerosis.) Assessment and Plan Assessment: Right knee severe tricompartmental osteoarthrosis Plan: I talked with patient at length regarding his condition along with treatment options. This point is quite limited because of pain related to his osteoarthrosis despite previous conservative measures. After thorough discussion he opted to proceed with surgery. We will plan to proceed with right total knee arthroplasty in addition we'll institute DVT prophylaxis postoperatively. Risks and benefits were discussed at length in layman's terms. Time with Patient: Less than 30
[~2021-11-16 05:32] MED LIST: ACETAMINOPHEN TAB 500 MG TAB PO PRN; MELOXICAM 7.5 MG TAB PO PRN; TRANEXAMIC ACID IN NACL,ISO-OS 1,000 MG in SALINE 1 100ML.BAG IVPB PRN
[2021-11-16] MEDS ORDERED: MIDAZOLAM 2 MG/2 ML VIAL IV PRN (05:40)
[2021-11-16] MEDS ORDERED: LIDOCAINE 1% (10MG/ML) FOR IV START INTRADERMA PRN (05:40)
[2021-11-16] MEDS ORDERED: DEXAMETHASONE SOD PHOSPHATE 4 MG/ML 1 ML VIAL IV ONE (05:40)
[2021-11-16] MEDS ORDERED: ONDANSETRON 4 MG/2 ML VIAL IVP ONE (05:40)
[2021-11-16] MEDS ORDERED: LACTATED RINGERS 1,000 ML IV SCH (05:40)
[2021-11-16 06:31] LABS: Albumin 4.6 g/dL (3.5-5.0); Calcium 9.3 mg/dL (8.4-10.2); Potassium 4.5 mmol/L (3.5-5.1); Total Bilirubin 0.9 mg/dL (0.2-1.3); Total Protein 7.2 g/dL (6.3-8.2)
[2021-11-16] MEDS ORDERED: MIDAZOLAM 2 MG/2 ML VIAL IVP ONE (06:47)
[2021-11-16] MEDS ORDERED: fentaNYL (PF) 50 MCG/ML 2 ML AMP IVP ONE (06:47)
[2021-11-16] MEDS ORDERED: fentaNYL (PF) 50 MCG/ML 2 ML AMP IVP PRN (07:00)
[2021-11-16] MEDS ORDERED: HYDROmorphone 0.5 MG/0.5 ML SYRINGE IVP PRN ×3 (07:00→08:22)
[2021-11-16] MEDS ORDERED: NEOSTIGMINE 1 MG/ML 10 ML VIAL ONE (07:08)
[2021-11-16] MEDS ORDERED: SUCCINYLCHOLINE CHLORIDE 200 MG/10 ML VIAL IV ONE (07:08)
[2021-11-16] MEDS ORDERED: SODIUM CHLORIDE 0.9% (PF) 10 ML VIAL ONE (07:08)
[2021-11-16] MEDS ORDERED: LIDOCAINE 2% INJ 20 MG/ML (2 ML VIAL) ONE (07:08)
[2021-11-16] MEDS ORDERED: fentaNYL (PF) 50 MCG/ML 2 ML AMP ONE (07:08)
[2021-11-16] MEDS ORDERED: ROCURONIUM 10 MG/ML (5 ML VIAL) IV ONE (07:08)
[2021-11-16] MEDS ORDERED: PROPOFOL 10 MG/ML 20 ML VIAL IV ONE (07:08)
[2021-11-16] MEDS ORDERED: HYDROmorphone (PF) 1 MG/ML ONE (07:08)
[2021-11-16] MEDS ORDERED: TRANEXAMIC ACID IN NACL,ISO-OS 1,000 MG/100 ML BAG ONE (07:08)
[2021-11-16] MEDS ORDERED: GLYCOPYRROLATE 0.2 MG/ML 2 ML VIAL ONE (07:08)
[2021-11-16] MEDS ORDERED: ROPIVACAINE 5 MG/ML 30 ML VIAL ONE (07:08)
[2021-11-16] MEDS ORDERED: ceFAZolin 3,000 MG in SODIUM CHLORIDE 0.9% IRRIGATIO 3,000 ML IRRIGATION ONE (07:29)
[2021-11-16] MEDS ORDERED: ROPIVACAINE 0.2%-NS ON-Q PUMP 1,090 MG, EMPTY PAIN BALL 1 EACH MISCELLANE PRN (08:15)
--- NOTE | 2021-11-16 08:16 | P.ANPRN ---
Procedure Note - Anesthesia - Nerve Block Performed Right Adductor Canal Time Out Performed: Yes (06:46) Date of Procedure: 11/16/21 Procedure Start Time: :46 Procedure Stop Time: :56 Location of Patient: PreOp Indication: Acute Post-Operative Pain, Requested by Surgeon (Dr Cota) Sedation Type: Sedate with meaningful contact maintained Preparation: Sterile Prep, Sterile Dressing Position: Supine Catheter: Indwelling Needle Types: Pajunk Needle Gauge: 21 Ultrasound used to visualize needle placement: Yes Ultrasound used to observe medication spread: Yes Injectate: 0.5% Ropivacaine (see comment for volume) (15cc) Blood Aspirated: No Pain Paresthesia on Injection Noted: No Resistance on Injection: Normal Image Stored and Saved: Yes Events: Uneventful and Well Tolerated
--- NOTE | 2021-11-16 08:18 | P.ANPRN ---
Procedure Note - Anesthesia - Nerve Block Performed Right iPack Time Out Performed: Yes Date of Procedure: 11/16/21 Procedure Start Time: 06:57 Procedure Stop Time: 07:02 Location of Patient: PreOp Indication: Acute Post-Operative Pain, Requested by Surgeon (Dr Cota) Sedation Type: Sedate with meaningful contact maintained Preparation: Sterile Prep Position: Supine Catheter: None Needle Types: Pajunk Needle Gauge: 21 Ultrasound used to visualize needle placement: Yes Ultrasound used to observe medication spread: Yes Injectate: 0.5% Ropivacaine (see comment for volume) (15cc +5cc PF Normal saline) Blood Aspirated: No Pain Paresthesia on Injection Noted: No Resistance on Injection: Normal Image Stored and Saved: Yes Events: Uneventful and Well Tolerated
[2021-11-16] MEDS ORDERED: HYDROcodone/APAP 7.5-325MG 1 EACH TAB PO PRN (08:22)
[2021-11-16] MEDS ORDERED: NALOXONE 0.4 MG/ML 1 ML VIAL IV PRN (08:22)
[2021-11-16] MEDS ORDERED: HYDROcodone/APAP 5-325MG 1 EACH TAB PO PRN (08:22)
[2021-11-16] MEDS ORDERED: LACTATED RINGERS 1,000 ML IV ONE (09:10)
--- NOTE | 2021-11-16 09:15 | P.OP ---
Date of Procedure: 11/16/21 Preoperative Diagnosis: Right knee severe tricompartmental osteoarthrosis Postoperative Diagnosis: Same Procedure(s) Performed: Right total knee arthroplastycementedcruciate retaining Implants: Depuy Attune size 7 cemented femoral component, size 6 cemented tibial component, 9 mm articular surface, 38 mm cemented patellar component. Anesthesia: finn MOREIRA Surgeon: Jersey Cota Bow Machine Operator #1: Pipo Cruz Estimated Blood Loss (ml): 50 Pathology: none sent Condition: stable Disposition: PACU Indications for Procedure: Patient 76-year-old male presents with progressive right knee pain secondary to osteoarthrosis despite conservative measures. A discussion of the risks and benefits of operative intervention versus continued conservative measures was made with patient. He opted to proceed with surgery. Operative risks to include infection, neurovascular injury, development of blood clots, fracture, possible component loosening/failure for subsequent procedures was discussed. Informed consent was obtained. Operative Findings: As below Description of Procedure: The patient was brought to the operating room, and after induction of spinal anesthesia the right lower extremity was prepped and draped in a normal fashion. The tourniquet was inflated to 270 mmHg. A longitudinal incision extending 3 finger breaths above the superior pole of the patella extending to the medial aspect the tibial tubercle was then made. The skin and subcutaneous tissues were divided sharply. Electrocautery was used for hemostasis. A medial parapatellar arthrotomy was then performed. The medial soft tissues to include the superficial and deep portions of the medial collateral ligament as well as the medial hamstring tendons were elevated subperiosteally. The proximal medial tibia osteophytes were carefully removed. The patella was everted. The knee was flexed. A portion of the retropatellar fat pad was excised sharply. The anterior cruciate ligament was sacrificed. A starting hole was made in the distal femur 1 cm anterior to the posterior cruciate origin. An intramedullary femoral guide was gently inserted planning on 5 valgus distal cut with 9 mm distal resection. The cutting block was pinned in place. The distal cut was then made. The posterior referencing sizing guide was utilized. 3 of external rotation was built into the system and verified off the trans- epicondylar axis and the posterior condyles. I felt size 7 was most appropriate. The cutting block was pinned in place. The anterior, posterior, and chamfer cuts were then made. The bone fragments were removed. A sulcus cut was then made with the appropriate guide. The trial size 7 femoral component was then placed and was fully seated. There was good anterior to posterior and medial to lateral fit. The distal peg holes were then drilled. The trial component was then removed. Attention was then paid towards preparing the proximal tibia. An extra medullary guide was utilized in line with the tibial shaft and second metatarsal distally. A 7 posterior slope was planned. I planned on 2 mm resection from the medial compartment. The cutting block was pinned in place. The proximal tibial cut was then made. The bone was removed in one fragment. The remnants of the medial and lateral menisci were excised the capsule junction with electrocautery. The tibia sized most appropriately at size 6. The posterior osteophytes off the distal femur were carefully removed with a curved osteotome. The trial tibial and femoral components were placed a long with a 9 millimeters articular surface. I was able to obtain full flexion and extension with good stability with varus and valgus stress. After several flexion and extension cycles, the tibial rotation was marked with electrocautery in line with the medial one third of the tibial tubercle. Attention was then paid towards preparing the patella. A patella reamer was utilized taking this down to 14 mm of bone stock. A good flush cut was made. The patella sized most appropriately at 38 millimeters. The peg holes were then drilled. The trial component was placed. The knee was taken through a range of motion. I had good patellofemoral tracking with no hands technique. The trial components were then removed. The tibia was prepared in the appropriate rotation with appropriate drill and keel punch. The flexion and extension gaps were checked and felt to be symmetric. The posterior soft tissues were injected with ropivacaine. The bony surfaces were prepared with pulsatile lavage and dried. The deep tibial component was then cemented in place and was fully seated. Excess cement was removed. The femoral component was cemented in place and was fully seated. Again excess cement was removed. The trial 9 millimeters surface was then inserted in the knee was put in full extension. The patella component was cemented in place. After the cement had sufficiently hardened, the knee was again taken through a range of motion. Again there was good stability in flexion and extension with varus and valgus stress. The trial articular surface was then removed. The final articular surface was placed and was impacted. Care was taken to avoid any soft tissue interposition. Pulsatile lavage was again utilized. The tourniquet was deflated with approximately 60 minutes t otal tourniquet time. There was minimal drainage therefore a deep drain was not placed. The medial parapatellar arthrotomy was then closed with #2 Ethibond suture. The subcutaneous tissues were reapproximated interrupted 2-0 Vicryl sutures. The skin was reapproximated with 3-0 subarticular strata fix suture. Skin tape and adhesive was applied. A sterile dressing was applied. The patient was then awoken from sedation and transferred to recovery room in good condition. Blood loss was estimated at 50 milliliters. No complications were incurred. Sponge and needle counts were correct at the end the case. Michele SINGLETON assisted during the major components this case to include exposure, bone resection, and implantation.
[2021-11-16 09:19] VITALS: TEMP 97.4
[2021-11-16] MEDS ORDERED: ROPIVACAINE 0.2%-NS ON-Q PUMP 2 MG/ML EACH MISCELLANE ONE (09:42)
--- NOTE | 2021-11-16 09:54 | XR ---
EXAMINATION TYPE: XR knee limited RT DATE OF EXAM: 11/16/2021 CLINICAL HISTORY: Right knee pain and arthritis status post total knee replacement. TECHNIQUE: Portable AP and crosstable lateral views of the right knee are obtained immediately posto peratively. COMPARISON: Outside right knee x-ray September 30, 2021 FINDINGS: Metallic hardware from total right knee arthroplasty is seen and appears satisfactory in a lignment and position. There is evidence of recent surgery with diffuse subcutaneous gas and soft ti ssue swelling noted. IMPRESSION: METALLIC HARDWARE FROM TOTAL RIGHT KNEE ARTHROPLASTY IS SATISFACTORY IN ALIGNMENT.
[2021-11-16 13:32] VITALS: BP 158/83; PULSE 102; RESP 16
== END 2021-11-16 13:49 | disposition home health service (06) ==
LOC: OR 05:32
PROVIDERS: ATTEND Orthopaedic Surgery
DX: M17.11 Unilateral primary osteoarthritis, right knee (principal); G89.18 Other acute postprocedural pain; I10 Essential (primary) hypertension; Z79.899 Other long term (current) drug therapy
CPT/HCPCS: 97110; 97161; 64999; 64448; 76942; 80053; 85610; 88300; 73560; 27447; C1713 ×2; C1776; J2250; J0330; J1100; J2710; J0690 ×2; J2405; J3010; J1170; J2795 ×2; J2704; J2001